=== PATIENT | female | born 1975 | race Caucasian/White ===

== ENCOUNTER 2020-09-18 22:52 | Emergency (ER) | payer OTHER ==
[~2020-09-18] VITALS: Ht 167.6 cm; Wt 82.2 kg
[2020-09-18 23:05] VITALS: BP 161/89
== END 2020-09-19 00:03 | disposition left against medical advice (07) ==
LOC: ER 22:53
DX: R60.0 Localized edema (principal); Z53.1 Procedure and treatment not carried out because of patient's decision for reasons of belief and group pressure